=== PATIENT | male | born 1955 | race Caucasian/White ===

== ENCOUNTER 2017-02-09 07:39 | Emergency (ER) | payer OTHER ==
[~2017-02-09] VITALS: Ht 180.3 cm; Wt 104.3 kg
[2017-02-09] MEDS ORDERED: SODIUM CHLORIDE 0.9% 1,000 ML IV ONE (08:30)
[2017-02-09 08:36] LABS: Basophils # (auto) 0 uL; Basophils % (auto) 0.4 % (0.0-2.0); CONDITION Y; Eosinophils # (auto) 0.3 uL; Hematocrit 49.3 % (41.0-53.0); Lymphocytes # (auto) 1.2 uL; Lymphocytes % (auto) 16.1 % (10.0-50.0); Mean Corpuscular Hgb Conc. 34.4 g/dL (32.0-36.0); Mean Platelet Volume 8.3 fL (7.4-10.4); Monocytes # (auto) 0.8 uL; Monocytes % (auto) 10.2 % (0.0-12.0); Neutrophils # (auto) 5.2 uL; Neutrophils % (auto) 69.3 % (37.0-80.0); Platelet Count (auto) 357 10^3/uL (140-450); Red Cell Distribution Width 14.9 % (11.6-16.0); White Blood Cell 7.5 10^3/uL (4.4-10.8)
[2017-02-09 08:39] LABS: Urine Bilirubin Negative (Negative); Urine Blood Negative /uL (Negative); Urine Color Yellow (Yellow); Urine Glucose Normal (Normal); Urine Ketone Negative (Negative); Urine Nitrite Negative (Negative); Urine RBC 1 /hpf (0 - 3); Urine Urobilinogen Normal (Negative); Urine pH 5.5 (5.0-8.0)
[2017-02-09] MEDS ORDERED: ONDANSETRON HCL 4 MG/2 ML VIAL IV ONE (08:45)
[2017-02-09] MEDS ORDERED: KETOROLAC TROMETH 30 MG/ML 1ML VIAL IV ONE (08:45)
[2017-02-09 08:55] LABS: Albumin 3.5 g/dL (3.4-5.0); BUN/Creatinine Ratio 16.9; Calcium 8.4 mg/dL (8.5-10.1); Potassium 4.3 mmol/L (3.5-5.1)
[2017-02-09 08:58] LABS: Bilirubin, Total 0.5 mg/dL (0.2-1.0); Total Protein 7.4 g/dL (6.4-8.2)
[2017-02-09 09:04] LABS: Amylase 55 U/L (25-115)
[2017-02-09 10:25] VITALS: BP 133/82
== END 2017-02-09 10:59 | disposition home or self-care (01) ==
LOC: ER 07:39
DX: M54.5 Low back pain (principal); R10.9 Unspecified abdominal pain; Z87.442 Personal history of urinary calculi
CPT/HCPCS: 36415; 74176; 80053; 81001; 82150; 83690; 85025; 96361; 96374; 96375; 99285; J1885; J2405; J7030

== ENCOUNTER 2017-02-10 06:54 | Emergency (ER) | payer OTHER ==
[~2017-02-10] VITALS: Ht 180.3 cm; Wt 104.3 kg
[2017-02-10 07:13] VITALS: BP 131/85
[2017-02-10 08:56] LABS: Urine Bilirubin Negative (Negative); Urine Blood Negative /uL (Negative); Urine Color Yellow (Yellow); Urine Glucose Normal (Normal); Urine Ketone Negative (Negative); Urine Nitrite Negative (Negative); Urine RBC <1 /hpf (0 - 3); Urine Urobilinogen Normal (Negative)
== END 2017-02-10 10:15 | disposition home or self-care (01) ==
LOC: ER 06:55
DX: M79.1 Myalgia (principal); M54.5 Low back pain; R31.9 Hematuria, unspecified; R10.9 Unspecified abdominal pain; R30.0 Dysuria; Z87.891 Personal history of nicotine dependence
CPT/HCPCS: 81001

== ENCOUNTER 2019-05-30 08:19 | Emergency (ER) | payer MEDICAID, OTHER ==
[~2019-05-30 08:19] MED LIST: MIDAZOLAM DRIP 50 mg/50mL 50 ML IV SCH
[2019-05-30 08:20] VITALS: BP 90/64
[2019-05-30] MEDS ORDERED: ATROPINE SULF 1 MG/10ml SYR IV ONE (08:20)
[2019-05-30] MEDS ORDERED: EPINEPHrine HCL 1 MG/10 ML SYRG IV ONE (08:20)
[2019-05-30] MEDS ORDERED: CALCIUM CHLOR(10%) 100MG/ML 10ML SYRINGE IV ONE (08:20)
[2019-05-30] MEDS ORDERED: SODIUM BICARBONATE 8.4% INJ 50ML SYRINGE IV ONE (08:20)
[2019-05-30] MEDS ORDERED: AMIODARONE HCL (50 MG/ ML) 3 ML VIAL IV ONE (08:20)
[2019-05-30] MEDS ORDERED: ETOMIDATE (2MG/ML) 20ML VIAL IV ONE (08:25)
[2019-05-30] MEDS ORDERED: MIDAZOLAM DRIP 50 mg/50mL 50 ML IV ONE (08:25)
[2019-05-30] MEDS ORDERED: SUCCINYLCHOLINE CHLORIDE 20 MG/ML 10ML VIAL IV ONE (08:26)
[2019-05-30] MEDS ORDERED: SODIUM BICARBONATE 8.4% INJ 50ML SYRINGE ONE ×2 (08:34→08:35)
[2019-05-30] MEDS ORDERED: EPINEPHrine HCL 1 MG/10 ML SYRG ONE ×2 (08:46→08:47)
[2019-05-30] MEDS ORDERED: IOHEXOL 350 MG/ML 100ML IJ ONE (08:49)
[2019-05-30] MEDS ORDERED: NOREPINEPHRINE 8 MG/250ML KIT 250 ML IV ONE (08:59)
[2019-05-30] MEDS ORDERED: PANTOPRAZOLE 80 MG in SODIUM CHL 0.9% 60 ML IV ONE (09:00)
[2019-05-30] MEDS ORDERED: OCTREOTIDE ACETATE 100 MCG in SODIUM CHL 0.9% 50 ML IV ONE (09:00)
[2019-05-30] MEDS ORDERED: OCTREOTIDE ACETATE 500 MCG in SODIUM CHL 0.9% 99 ML IV SCH (09:00)
[2019-05-30] MEDS ORDERED: EPINEPHrine HCL INJECTION 4 MG in SODIUM CHL 0.9% 250 ML IV ONE (09:00)
[2019-05-30 09:17] LABS: Hemoglobin 14.6 g/dL (13.5-17.5); Mean Corpuscular Hemoglobin 32.1 pg (28.0-32.0); Mean Corpuscular Hgb Conc. 31.6 g/dL (32.0-36.0); Mean Corpuscular Volume 101.5 fL (80.0-100.0); Platelet Count (auto) 278 10^3/uL (140-450); Red Blood Cells 4.54 10^6/uL (4.5-5.90); Red Cell Distribution Width 16.3 % (11.8-14.3); White Blood Cell 11.6 10^3/uL (4.4-10.8)
[2019-05-30 09:29] LABS: Basophils % (manual) 0 (0.0-2.0); Blast Cells 0; Myelocytes % 0; Promyelocytes % 0
[2019-05-30 09:34] LABS: Albumin 2.5 g/dL (3.4-5.0); INR 1.11 (0.9-1.15); Partial Thromboplastin Time 28.3 sec (23.64-32.05)
[2019-05-30 09:40] LABS: BUN/Creatinine Ratio 11.7; Bilirubin, Total 0.3 mg/dL (0.2-1.0); Total Protein 6.5 g/dL (6.4-8.2)
[2019-05-30 09:57] LABS: Band Neutrophils % (manual) 1; Eosinophils % (manual) 6 (0-7); Lymphocytes % (manual) 37 (10.0-50.0); Metamyelocytes % 1; Monocytes % (manual) 12 (0-12); Reactive Lymphocytes 3
== END 2019-05-30 09:12 | disposition expired ==
LOC: EDBD 08:19 → ER 08:19
DX: R06.02 Shortness of breath (principal); R05 Cough; R41.82 Altered mental status, unspecified
CPT/HCPCS: 31500; 36415; 36556; 71045; 80053; 84484; 85007; 85027; 85610; 85730; 99291; C9113; J0171; J0282; J0330; J2250; J7050; Q9967; 93005